=== PATIENT | female | born 1950 | race Caucasian/White ===

== ENCOUNTER 2016-10-01 05:40 | Day surgery (SDC) | payer MEDICARE, OTHER ==
[~2016-10-01] VITALS: Ht 160 cm; Wt 72.0 kg
[~2016-10-01 05:40] MED LIST: ALBU18HF INH; ASPI-496 PO; BUDE10.22 INH; CA C1TAB42 PO; CHOL10003 PO; CYAN50008 PO; DIPH25CA61 PO; GUAI1CAP9 PO; LOPE2TAB28 PO; LORA10TA3 PO; LOSA25TA5 PO; METF10002 PO; NPH,100V4 SC; SIMV20TA3 PO; SULF1TAB24 PO; XLEAR NS
[2016-10-01] MEDS ORDERED: LACTATED RINGERS 1,000 ML IV SCH (06:01)
[2016-10-01 06:02] VITALS: BP 153/73
[2016-10-01] MEDS ORDERED: LIDOCAINE 1%, 2ML SQ PRN (06:30)
[2016-10-01] MEDS ORDERED: EPINEPHRINE TOPICAL SOLN 1 MG/ML, 30ML ONE (07:04)
[2016-10-01] MEDS ORDERED: FENTANYL PF 100 MCG/2ML ONE (07:20)
[2016-10-01] MEDS ORDERED: HYDROcodone/APAP 7.5-325MG/15ML UDC PO PRN (08:00)
[2016-10-01] MEDS ORDERED: FENTANYL PF 100 MCG/2ML IV PRN (08:00)
[2016-10-01] MEDS ORDERED: ALBUTEROL SULFATE 2.5 MG/3 ML NPPB PRN (08:00)
[2016-10-01] MEDS ORDERED: METOPROLOL 1 MG/ML, 5ML IV PRN (08:00)
[2016-10-01] MEDS ORDERED: ACETAMINOPHEN 325 MG TABLET PO PRN (08:00)
[2016-10-01] MEDS ORDERED: hydrALAzine 20 MG/ML, 1ML IV PRN (08:00)
[2016-10-01] MEDS ORDERED: LABETALOL 5MG/ML, 20ML IV PRN (08:00)
[2016-10-01] MEDS ORDERED: EPHEDRINE 50 MG/ML, 1ML IVPush PRN (08:00)
[2016-10-01] MEDS ORDERED: ONDANSETRON 2MG/ML, 2ML IVPush PRN (08:00)
[2016-10-01] MEDS ORDERED: NEOSTIGMINE 1 MG/ML, 10ML ONE (16:54)
[2016-10-01] MEDS ORDERED: GLYCOPYRROLATE 0.2MG/1ML ONE (16:54)
[2016-10-01] MEDS ORDERED: PROPOFOL 10 MG/ML, 20ML ONE (16:54)
[2016-10-01] MEDS ORDERED: ONDANSETRON 2MG/ML, 2ML ONE (16:54)
[2016-10-01] MEDS ORDERED: ROCURONIUM 10 MG/ML ONE (16:54)
[2016-10-01] MEDS ORDERED: SUCCINYLCHOLINE 20 MG/ML, 10ML ONE (16:54)
== END 2016-10-01 09:55 | disposition home or self-care (01) ==
LOC: OUT 05:40
PROVIDERS: ATTEND Otolaryngology
DX: J38.3 Other diseases of vocal cords (principal); I10 Essential (primary) hypertension; E11.9 Type 2 diabetes mellitus without complications; E78.5 Hyperlipidemia, unspecified; J45.909 Unspecified asthma, uncomplicated; Z88.0 Allergy status to penicillin; J43.9 Emphysema, unspecified; F17.210 Nicotine dependence, cigarettes, uncomplicated
CPT/HCPCS: 31536; 82962; 88304; J0330; J2405; J2704; J2710; J3010; J7120; J3490

== ENCOUNTER 2020-08-22 15:54 | Emergency (ER) | payer MEDICARE ==
[~2020-08-22 15:54] MED LIST changes: -CYAN50008 PO; +CYAN50009 PO; +LORA-247 PO; -LORA10TA3 PO; +LOSA25TA25 PO; -LOSA25TA5 PO; -NPH,100V4 SC; +NPH,100V5 SC; +SIMV20TA19 PO; -SIMV20TA3 PO; +SULF-23 PO; -SULF1TAB24 PO
--- NOTE | 2020-08-22 16:25 | NUR ---
SOB WORSENING SINCE THURSDAY. HX OF COPD. PT ALSO HAVING ANXIEY ATTACKS R/T OF DAUGHTER. PT TO BED WTIH STEADY GAIT. POSTIONED TO COMFORT. ATTACHED TO MONITORS. VSS. OTHER DAUGHTER AT BEDSIDE. AWAITING ORDERS.
--- NOTE | 2020-08-22 16:30 | NUR ---
DR. PATTEN TO BEDSIDE FOR EVALUATION.
[2020-08-22] MEDS ORDERED: ALBUTEROL/IPRATROPIUM 2.5MG/0.5MG, 3 ML ONE (16:38)
[2020-08-22] MEDS ORDERED: LORazepam 1MG TABLET ONE (16:39)
--- NOTE | 2020-08-22 16:55 | NUR ---
DURING BREATHING TREATMENT PT STATED HER THROAT FELT LIKE IT WAS CLOSING UP. BREATHING TREATMENT STOPPED. DR. PATTEN MADE AWARE. PT VSS. STATES SHE CAN BREATH BUT DURING BREATHING TREATMENT FELT LIKE SHE WAS INHALING POWDER. WILL CONTINUE TO MONITOR.
[2020-08-22] MEDS ORDERED: LORazepam 1MG TABLET PO ONE (17:00)
[2020-08-22] MEDS ORDERED: ALBUTEROL/IPRATROPIUM 2.5MG/0.5MG, 3 ML NPPB ONE (17:00)
[2020-08-22 17:32] LABS: BASOPHILS % (AUTO) 1 % (0-1); EOSINOPHILS % (AUTO) 1 % (1-7); LYMPHOCYTES % (AUTO) 18 % (22-44); MEAN CORPUSCULAR HEMOGLOBIN 33.1 pg (27.0-34.8); MEAN CORPUSCULAR HGB CONC 33.9 g/dL (32.4-35.8); MEAN PLATELET VOLUME 6.4 fL (7.4-10.4); MONOCYTES % (AUTO) 8 % (2-9); NEUTROPHILS % (AUTO) 72 % (42-75); PLATELET COUNT 385 x10^3/uL (130-400); RED BLOOD COUNT 4.03 x10^6/uL (3.82-5.3); RED CELL DISTRIBUTION WIDTH 13.4 % (9.6-15.2)
[2020-08-22 17:33] LABS: MD NO
[2020-08-22 17:37] LABS: ALANINE AMINOTRANSFERASE 37 U/L (12-78); ALBUMIN 3.5 g/dL (3.4-5.0); ANION GAP 7 mmol/L (5-15); CALCIUM 8.9 mg/dL (8.5-10.1); CHLORIDE 100 mmol/L (98-107); CREATININE 0.85 mg/dL (0.55-1.02)
[2020-08-22 17:41] LABS: ALKALINE PHOSPHATASE 49 U/L (45-117); BILIRUBIN,TOTAL 0.3 mg/dL (0.2-1.0); TOTAL PROTEIN 7.9 g/dL (6.4-8.2); TROPONIN I < 0.015 ng/mL (0.000-0.045)
[2020-08-22 18:06] VITALS: BP 148/54
--- NOTE | 2020-08-22 18:40 | NUR ---
Patient/Caregiver given discharge instructions and they have confirmed that they understand the instructions. Patient ambulatory with steady gait.
== END 2020-08-22 18:41 | disposition home or self-care (01) ==
LOC: ED 18:00
DX: J43.9 Emphysema, unspecified (principal); F41.1 Generalized anxiety disorder; R06.00 Dyspnea, unspecified; R07.89 Other chest pain; R06.02 Shortness of breath; I10 Essential (primary) hypertension; E11.9 Type 2 diabetes mellitus without complications
CPT/HCPCS: 36415; 71045; 80053; 83880; 84484; 85025; 93005; 94640; 99285; J7512